=== PATIENT | female | born 1980 | race Caucasian/White ===

== ENCOUNTER 2018-11-28 17:01 | Inpatient (IN) | payer OTHER ==
[2018-11-28] MEDS ORDERED: ASPIRIN 81 MG CHEWABLE TABLETS PO ONE (17:18)
--- NOTE | 2018-11-28 17:19 | PDOC ---
Rapid Medical Evaluation Time Seen by Provider: 11/28/18 17:16 Medical Evaluation: 11/28/18 17:16 I have performed a brief in-person evaluation of this patient. The patient presents with a chief complaint of: chest pain and left arm numbness x 2 wks, went to urgent care 2 weeks ago was told was anxiety/panic attacks, chest feels tight. hx of diabetes/asthma, no recent travel/surgery/OCPs Pertinent physical exam findings: anxious appearing I have ordered the following: cards workup The patient will proceed to the ED for further evaluation. Discharge Disposition - Diagnosis Chest pain - Discharge Dispostion Condition at time of disposition: Stable - Referrals - Patient Instructions - Post Discharge Activity
[2018-11-28 17:20] VITALS: BMI 25.0
[2018-11-28] MEDS ORDERED: ASPIRIN 81 MG CHEWABLE TABLETS ONE (17:56)
[2018-11-28 17:59] LABS: BASO % 0.7 % (0-2.0); EOS % 0.3 % (0-4.5); HEMATOCRIT 43.5 % (32.4-45.2); HEMOGLOBIN 14.1 GM/dL (10.7-15.3); LYMPH % 27.2 % (8-40); MCH 29.1 pg (25.7-33.7); MCHC 32.5 g/dl (32.0-36.0); MEAN CELL VOLUME 89.5 fl (80-96); MEAN PLT VOLUME 7.9 fl (7.5-11.1); NEUT % 67.8 % (42.8-82.8); PLATELET COUNT 373 K/MM3 (134-434); RBC 4.86 M/mm3 (3.60-5.2); RDW 13.7 % (11.6-15.6); WHITE BLOOD COUNT 14.7 K/mm3 (4.0-10.0)
[2018-11-28 18:12] LABS: INR 1.09 (0.83-1.09); PROTHROMBIN TIME (PATIENT) 12.9 SEC (9.7-13.0)
[2018-11-28 18:29] LABS: ALBUMIN 3.8 g/dl (3.4-5.0); BILIRUBIN,TOTAL 0.3 mg/dL (0.2-1); BLOOD UREA NITROGEN 8.6 mg/dL (7-18); CALCIUM 9.3 mg/dL (8.5-10.1); CREATININE 0.7 mg/dL (0.55-1.3); MAGNESIUM 2.1 mg/dL (1.8-2.4); POTASSIUM 3.6 mmol/L (3.5-5.1); TOT PROT 7.3 g/dl (6.4-8.2)
--- NOTE | 2018-11-28 19:18 | PDOC ---
*Physical Exam - Vital Signs Last Vital Signs Temp Pulse Resp BP Pulse Ox 98.1 F 69 18 154/95 99 11/28/18 17:18 11/28/18 17:18 11/28/18 17:18 11/28/18 17:18 11/28/18 17:18 ED Treatment Course - LABORATORY CBC & Chemistry Diagram: 11/28/18 17:36 11/28/18 17:36 - ADDITIONAL ORDERS Additional order review: Laboratory Results 11/28/18 11/28/18 17:36 17:36 PT with INR 12.90 INR 1.09 Sodium 137 Potassium 3.6 Chloride 100 Carbon Dioxide 28 Anion Gap 9 BUN 8.6 Creatinine 0.7 Est GFR (CKD-EPI)AfAm 128.28 Est GFR (CKD-EPI)NonAf 110.69 Random Glucose 259 H Calcium 9.3 Magnesium 2.1 Total Bilirubin 0.3 AST 15 ALT 24 Alkaline Phosphatase 96 Creatine Kinase 74 Troponin I 0.16 H Total Protein 7.3 Albumin 3.8 11/28/18 17:36 RBC 4.86 MCV 89.5 MCHC 32.5 RDW 13.7 MPV 7.9 Neutrophils % 67.8 Lymphocytes % 27.2 Monocytes % 4.0 Eosinophils % 0.3 Basophils % 0.7 - Medications Given in the ED: ED Medications Discontinued Medications Generic Name Dose Route Start Last Admin Trade Name Freq PRN Reason Stop Dose Admin Aspirin 162 mg 11/28/18 17:18 11/28/18 17:59 Asa - PO 11/28/18 17:19 162 mg ONCE ONE Administration *DC/Admit/Observation/Transfer Diagnosis at time of Disposition: Chest pain - Discharge Dispostion Condition at time of disposition: Stable - Referrals Referrals: Douglas Reaves MD [Primary Care Provider] - - Patient Instructions - Post Discharge Activity
--- NOTE | 2018-11-28 19:44 | PDOC ---
History of Present Illness - General Chief Complaint: Chest Pain Stated Complaint: CHEST PAIN Time Seen by Provider: 11/28/18 17:16 History Source: Patient - History of Present Illness Initial Comments: 11/28/18 20:40 38-year-old female complaining of left-sided chest pain radiating to the left arm for the last 2 weeks on and off. Patient reports that for the last 2-3 days the pain has been consistent to the left-sided chest. Denies recent travel, OCP use, heavy lifting, trauma or injury. Denies diaphoresis, nausea, vomiting, dizziness, weakness abdominal pain. Patient has a past medical history of asthma, diabetes [id number] Past History - Past Medical History Allergies/Adverse Reactions: Allergies Allergy/AdvReac Type Severity Reaction Status Date / Time No Known Allergies Allergy Verified 11/28/18 17:20 Home Medications: Ambulatory Orders Metformin HCl [Glucophage] 500 mg PO BID 11/28/18 COPD: No Diabetes: Yes - Immunization History Immunization Up to Date: No - Suicide/Smoking/Psychosocial Hx Smoking History: Never smoked Have you smoked in the past 12 months: No Information on smoking cessation initiated: No Hx Alcohol Use: No Drug/Substance Use Hx: No Review of Systems - Review of Systems Able to Perform ROS?: Yes Is the patient limited Syriac proficient: No Constitutional: No: Symptoms Reported, See HPI, Chills, Diaphoresis, Fever, Loss of Appetite, Malaise, Night Sweats, Weakness, Weight Stable, Unintentional Wgt. Loss, Unexplained wgt Loss, Other Cardiac (ROS): Yes: Chest Pain. No: Symptoms Reported, See HPI, Edema, Irregular Heart Rate, Lightheadedness, Palpitations, Syncope, Chest Tightness, Other ABD/GI: No: Symptoms Reported, See HPI, Abdominal Distended, Abd. Pain w/ defecation, Blood Streaked Bowels, Constipated, Diarrhea, Difficulty Swallowing , Nausea, Poor Appetite, Poor Fluid Intake, Rectal Bleeding, Vomiting, Indigestion, Abdominal cramping, Tarry Stools, Other : No: Symptoms Reported, See HPI, Burning, Dysuria, Discharge, Frequency, Flank Pain, Hematuria, Incontinence, Pain, Urgency, Testicular Mass, Testicular Swelling, Lesions, Testicular Pain, Other *Physical Exam - Vital Signs Last Vital Signs Temp Pulse Resp BP Pulse Ox 98.1 F 69 18 154/95 99 11/28/18 17:18 11/28/18 17:18 11/28/18 17:18 11/28/18 17:18 11/28/18 17:18 - Physical Exam General Appearance: Yes: Appropriately Dressed Respiratory/Chest: positive: Chest Tender (left sided tender chest), Lungs Clear , Normal Breath Sounds Cardiovascular: positive: Regular Rhythm, Regular Rate Gastrointestinal/Abdominal: positive: Normal Bowel Sounds, Soft. negative: Tender Extremity: positive: Normal Capillary Refill, Normal Inspection, Normal Range of Motion Integumentary: positive: Normal Color, Dry, Warm Neurologic: positive: Fully Oriented, Alert, Normal Mood/Affect Heart Score/ECG Review - History History: Slightly suspicious - Electrocardiogram EKG: Normal - Age Age: </= 45 - Risk Factors Risk Factors Heart Score: Yes Hx Diabetes Based on the list above the patient has:: 1-2 risk factors - Troponin Troponin: 1-3x normal limit - Score Heart Score - Total: 2 - ECG Intrepretation Rhythm: Regular Rhythm Comment:: 11/28/18 20:25 NSR: [address] abnormality ED Treatment Course - LABORATORY CBC & Chemistry Diagram: 11/28/18 17:36 11/28/18 17:36 - ADDITIONAL ORDERS Additional order review: Laboratory Results 11/28/18 11/28/18 17:36 17:36 PT with INR 12.90 INR 1.09 Sodium 137 Potassium 3.6 Chloride 100 Carbon Dioxide 28 Anion Gap 9 BUN 8.6 Creatinine 0.7 Est GFR (CKD-EPI)AfAm 128.28 Est GFR (CKD-EPI)NonAf 110.69 Random Glucose 259 H Calcium 9.3 Magnesium 2.1 Total Bilirubin 0.3 AST 15 ALT 24 Alkaline Phosphatase 96 Creatine Kinase 74 Troponin I 0.16 H Total Protein 7.3 Albumin 3.8 11/28/18 17:36 RBC 4.86 MCV 89.5 MCHC 32.5 RDW 13.7 MPV 7.9 Neutrophils % 67.8 Lymphocytes % 27.2 Monocytes % 4.0 Eosinophils % 0.3 Basophils % 0.7 - Medications Given in the ED: ED Medications Discontinued Medications Generic Name Dose Route Start Last Admin Trade Name Freq PRN Reason Stop Dose Admin Aspirin 162 mg 11/28/18 17:18 11/28/18 17:59 Asa - PO 11/28/18 17:19 162 mg ONCE ONE Administration Medical Decision Making - Medical Decision Making 11/28/18 20:45 A: chest pain r/o ACS P: labs EKG chest xray elevated troponin patient signed out to Dr. Richardson for inpatient management 11/29/18 03:37 + troponin elevated than previosu with chest pain 09/21. POCUS ECHO, no acute finding. patient pending transfer to [facility]. accepted for transfer by cardiology at [facility]. *DC/Admit/Observation/Transfer Diagnosis at time of Disposition: Chest pain Qualifiers: Chest pain type: unspecified Qualified Code(s): R07.9 - Chest pain, unspecified - Discharge Dispostion Disposition: TRANSFER ACUTE CARE/OTHER HOSP Condition at time of disposition: Stable Decision to Admit order: Yes - Referrals - Patient Instructions - Post Discharge Activity
[2018-11-28] MEDS ORDERED: KETOROLAC TROMETHAMINE 30 MG/1 ML VIAL IM ONE (19:49)
[2018-11-28] MEDS ORDERED: ACETAMINOPHEN 325 MG TABLET (FP) PO ONE (20:42)
[2018-11-28] MEDS ORDERED: ACETAMINOPHEN 325 MG TABLET (FP) ONE (21:12)
--- NOTE | 2018-11-28 22:08 | HP ---
Admitting History and Physical - Primary Care Physician PCP: Cameron Richardson - Admission History of Present Illness: 38-year-old female complaining of left-sided chest pain radiating to the left arm for the last 2 weeks on and off. Patient reports that for the last 2-3 days the pain has been consistent to the left-sided chest. Denies recent travel, OCP use, heavy lifting, trauma or injury. Denies diaphoresis, nausea, vomiting, dizziness, weakness abdominal pain. - Smoking History Smoking history: Never smoked Have you smoked in the past 12 months: No - Alcohol/Substance Use Hx Alcohol Use: No Home Medications - Allergies Allergies/Adverse Reactions: Allergies Allergy/AdvReac Type Severity Reaction Status Date / Time No Known Allergies Allergy Verified 11/28/18 17:20 - Home Medications Home Medications: Ambulatory Orders Metformin HCl [Glucophage] 500 mg PO BID 11/28/18 Physical Examination Vital Signs: Vital Signs Temperature 98.1 F 11/28/18 17:18 Pulse Rate 69 11/28/18 17:18 Respiratory Rate 18 11/28/18 17:18 Blood Pressure 154/95 11/28/18 17:18 O2 Sat by Pulse Oximetry (%) 99 11/28/18 17:18 Constitutional: Yes: No Distress HENT: Yes: Atraumatic Neck: Yes: Supple Cardiovascular: Yes: Regular Rate and Rhythm Respiratory: Yes: CTA Bilaterally Gastrointestinal: Yes: Normal Bowel Sounds Extremities: Yes: WNL Edema: No Peripheral Pulses WNL: Yes Neurological: Yes: Alert, Oriented Labs: CBC, BMP 11/28/18 17:36 11/28/18 17:36 Imaging - Results X-ray: Report Reviewed Problem List - Problems (1) Chest pain Assessment/Plan: will fu cardiac profile repeat ekg cardiology consult tele monitoring oxygen inhalation Code(s): R07.9 - CHEST PAIN, UNSPECIFIED Qualifiers: Chest pain type: unspecified Qualified Code(s): R07.9 - Chest pain, unspecified Assessment/Plan Laboratory Tests 11/28/18 11/28/18 11/28/18 17:36 17:36 17:36 WBC 14.7 H RBC 4.86 Hgb 14.1 Hct 43.5 MCV 89.5 MCH 29.1 MCHC 32.5 RDW 13.7 Plt Count 373 MPV 7.9 Absolute Neuts (auto) 10.0 H Neutrophils % 67.8 Lymphocytes % 27.2 Monocytes % 4.0 Eosinophils % 0.3 Basophils % 0.7 Nucleated RBC % 0 PT with INR 12.90 INR 1.09 D-Dimer Sodium 137 Potassium 3.6 Chloride 100 Carbon Dioxide 28 Anion Gap 9 BUN 8.6 Creatinine 0.7 Est GFR (CKD-EPI)AfAm 128.28 Est GFR (CKD-EPI)NonAf 110.69 Random Glucose 259 H Calcium 9.3 Magnesium 2.1 Total Bilirubin 0.3 AST 15 ALT 24 Alkaline Phosphatase 96 Creatine Kinase 74 Troponin I 0.16 H Total Protein 7.3 Albumin 3.8 11/28/18 17:36 WBC RBC Hgb Hct MCV MCH MCHC RDW Plt Count MPV Absolute Neuts (auto) Neutrophils % Lymphocytes % Monocytes % Eosinophils % Basophils % Nucleated RBC % PT with INR INR D-Dimer 262 Sodium Potassium Chloride Carbon Dioxide Anion Gap BUN Creatinine Est GFR (CKD-EPI)AfAm Est GFR (CKD-EPI)NonAf Random Glucose Calcium Magnesium Total Bilirubin AST ALT Alkaline Phosphatase Creatine Kinase Troponin I Total Protein Albumin
[2018-11-28] MEDS ORDERED: ACETAMINOPHEN 325 MG TABLET (FP) PO PRN (22:11)
[2018-11-28 23:34] LABS: EPI CELLS 12.5 /HPF (0-5/HPF); HYALINE CASTS 87 /lpf (0-8); URINE APPEARANCE TURBID; URINE BACTERIA 596.4 /hpf (NEGATIVE); URINE BILIRUBIN NEGATIVE (NEGATIVE); URINE COLOR YELLOW; URINE GLUCOSE (UA) 3+ (NEGATIVE); URINE KETONE TRACE (NEGATIVE); URINE LEUK ESTERASE 2+ (NEGATIVE); URINE NITRITE NEGATIVE (NEGATIVE); URINE PROTEIN TRACE (NEGATIVE); URINE RBC 5 /hpf (0-4); URINE WBC 87 /hpf (0-5)
[2018-11-29 00:19] LABS: URINE CRYSTALS CALCIUM OXALATE /hpf
[2018-11-29] MEDS ORDERED: HEPARIN NA (PORCINE) 5,000 UNITS/ML 1ML VIAL IVPUSH ONE (01:05)
[2018-11-29] MEDS ORDERED: HEPARIN NA (PORCINE) 5,000 UNITS/ML 1ML VIAL IVPUSH PRN ×2 (01:06)
[2018-11-29] MEDS ORDERED: HEPARIN - 25,000 UNIT in SODIUM CHLORIDE 495 ML IV SCH (01:15)
[2018-11-29] MEDS ORDERED: ACETAMINOPHEN 1000 MG/100 ML VIAL (NON FORMULARY) IVPB ONE (01:27)
[2018-11-29] MEDS ORDERED: HEPARIN NA (PORCINE) 5,000 UNITS/ML 1ML VIAL ONE (02:00)
[2018-11-29] MEDS ORDERED: ACETAMINOPHEN INJECTION 100 ML IVPB ONE (02:00)
[2018-11-29] MEDS ORDERED: HEPARIN INFUSION - 25,000 UNITS/500 ML INFUS.BAG IVPB ONE (02:01)
--- NOTE | 2018-11-29 02:01 | PDOC ---
*Physical Exam - Vital Signs Last Vital Signs Temp Pulse Resp BP Pulse Ox 98.1 F 69 18 154/95 99 11/28/18 17:18 11/28/18 17:18 11/28/18 17:18 11/28/18 17:18 11/28/18 17:18 ED Treatment Course - LABORATORY CBC & Chemistry Diagram: 11/28/18 17:36 11/28/18 17:36 - ADDITIONAL ORDERS Additional order review: Laboratory Results 11/28/18 11/28/18 11/28/18 17:36 17:36 17:36 PT with INR 12.90 INR 1.09 D-Dimer 262 Sodium 137 Potassium 3.6 Chloride 100 Carbon Dioxide 28 Anion Gap 9 BUN 8.6 Creatinine 0.7 Est GFR (CKD-EPI)AfAm 128.28 Est GFR (CKD-EPI)NonAf 110.69 Random Glucose 259 H Calcium 9.3 Magnesium 2.1 Total Bilirubin 0.3 AST 15 ALT 24 Alkaline Phosphatase 96 Creatine Kinase 74 Troponin I 0.16 H Total Protein 7.3 Albumin 3.8 11/28/18 17:36 RBC 4.86 MCV 89.5 MCHC 32.5 RDW 13.7 MPV 7.9 Neutrophils % 67.8 Lymphocytes % 27.2 Monocytes % 4.0 Eosinophils % 0.3 Basophils % 0.7 - Medications Given in the ED: ED Medications Discontinued Medications Generic Name Dose Route Start Last Admin Trade Name Freq PRN Reason Stop Dose Admin Acetaminophen 650 mg 11/28/18 20:42 11/28/18 21:14 Tylenol - PO 11/28/18 20:43 650 mg ONCE ONE Administration Aspirin 162 mg 11/28/18 17:18 11/28/18 17:59 Asa - PO 11/28/18 17:19 162 mg ONCE ONE Administration Ketorolac Tromethamine 30 mg 11/28/18 19:49 11/28/18 19:53 Toradol Injection - IM 11/28/18 19:50 Not Given ONCE ONE Medical Decision Making - Medical Decision Making 11/29/18 01:59 38 female being admitted for chest pain, had a positive troponin of 1.14 and prior to being started on anticoagulation, a CAT scan of the head was done because she was complaining of a severe headache CT scan of the head was a normal exam. The ventricular system is midline and nondilated This sulcal pattern is normal for the patient's age. There was no bleed, mass, or extra-axial fluid collection or mass effect. No skull fracture or skull lesion was identified. The visualized paranasal sinuses and mastoid air cells were clear 11/29/18 02:[address] Richardson and she agreed to starting heparin *DC/Admit/Observation/Transfer Diagnosis at time of Disposition: Chest pain Qualifiers: Chest pain type: unspecified Qualified Code(s): R07.9 - Chest pain, unspecified - Discharge Dispostion Condition at time of disposition: Stable - Referrals - Patient Instructions - Post Discharge Activity
[2018-11-29 07:46] VITALS: BP 106/72; PULSE 80; TEMP 98.3
--- NOTE | 2018-11-29 10:46 | EKG ---
Test Reason : Blood Pressure : / mmHG Vent. Rate : 083 BPM Atrial Rate : 083 BPM P-R Int : 162 ms QRS Dur : 078 ms QT Int : 394 ms P-R-T Axes : 050 063 058 degrees QTc Int : 462 ms POOR DATA QUALITY, INTERPRETATION MAY BE ADVERSELY AFFECTED NORMAL SINUS RHYTHM POSSIBLE LEFT ATRIAL ENLARGEMENT LOW VOLTAGE QRS NONSPECIFIC ST AND T WAVE ABNORMALITY ABNORMAL ECG NO PREVIOUS ECGS AVAILABLE Confirmed by MD Luis Miguel, Garrison ([id number]) on 11/29/2018 10:45:47 AM Referred By: Confirmed By:Garrison Bolanos MD
--- NOTE | 2018-11-29 17:36 | DS ---
Physical Examination Vital Signs: Vital Signs Temperature 98.3 F 11/29/18 03:00 Pulse Rate 80 11/29/18 03:00 Respiratory Rate 18 11/29/18 03:00 Blood Pressure 106/72 11/29/18 03:00 O2 Sat by Pulse Oximetry (%) 100 11/28/18 22:00 Labs: CBC, BMP 11/28/18 17:36 11/28/18 17:36 Discharge Summary Reason For Visit: CHEST PAIN Condition: Stable - Instructions Disposition: TRANSFER ACUTE CARE/OTHER HOSP - Home Medications Comprehensive Discharge Medication List: Ambulatory Orders Metformin HCl [Glucophage] 500 mg PO BID 11/28/18 transfered to tertiary care d/w dr rayo
--- NOTE | 2018-11-30 11:29 | EKG ---
Test Reason : Blood Pressure : / mmHG Vent. Rate : 082 BPM Atrial Rate : 082 BPM P-R Int : 146 ms QRS Dur : 082 ms QT Int : 386 ms P-R-T Axes : 054 053 049 degrees QTc Int : 450 ms NORMAL SINUS RHYTHM NONSPECIFIC ST AND T WAVE ABNORMALITY ABNORMAL ECG NO PREVIOUS ECGS AVAILABLE Confirmed by TONYA MEYER MD ([id number]) on 11/30/2018 11:29:05 AM Referred By: Confirmed By:TONYA MEYER MD
== END 2018-11-29 03:56 | disposition short-term general hospital (02) | DRG 282 ==
LOC: JER 17:01 → JERBED 20:24
PROVIDERS: ADMIT Internal Medicine; ATTEND Internal Medicine
DX: I21.4 Non-ST elevation (NSTEMI) myocardial infarction (principal); E11.9 Type 2 diabetes mellitus without complications
CPT/HCPCS: 36415; 70450-TC; 71046-TC-FY; 80053; 81003; 82550; 83735; 84484; 85025; 85379; 85610; 93005; 93010; 93308; 99285-25; J0131; J1644